=== PATIENT | male | born 1940 | race Caucasian/White ===

== ENCOUNTER 2018-07-10 08:26 | Outpatient (CLI) | payer MEDICARE, OTHER ==
--- NOTE | 2018-07-10 11:07 | MRI ---
BRAIN MRI WITH AND WITHOUT CONTRAST: Date: 07-10-18 Comparison: None. History: Bilateral sensory neural hearing loss. Technique: Multiplanar, multisequence MR imaging of the brain obtained with and without contrast usin g an internal auditory canal protocol. FINDINGS: The diffusion weighted imaging demonstrates no evidence for acute infarction. 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 There are scattered foci of increased T2 and FL AIR signal within the periventricular and deep white matter, consistent with small vessel disease. Th ere is mild mucosal thickening involving the left maxillary sinus. 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 Thin section T2 weighted imaging through the skull base demonstrates no abnormality at the level of t he cerebellar pontine angle, internal auditory canal, cochlea, vestibule, or vesicular aqua duct on e ither side. Regional bone marrow signal intensity appears grossly unremarkable. The thin section post contrast imaging demonstrates no abnormal enhancement in the region of the CP a ngle, internal auditory canal, cochlea, vestibule, or semicircular canals on either side. Post contrast imaging demonstrates no abnormal enhancement within the brain parenchyma. IMPRESSION: 1. Evidence of small vessel disease. No acute findings. POS: LETTY
== END 2018-07-10 08:27 | disposition home or self-care (01) ==
LOC: MRI 08:26
PROVIDERS: ATTEND Otolaryngology Plastic Surgery within the Head & Neck
DX: H90.5 Unspecified sensorineural hearing loss (principal); I73.9 Peripheral vascular disease, unspecified
CPT/HCPCS: 70553; 82565

== ENCOUNTER 2018-10-27 09:42 | Outpatient (CLI) | payer MEDICARE, OTHER ==
--- NOTE | 2018-10-27 10:15 | ULT ---
Abdominal aortic sonogram HISTORY: Aneurysm screening. FINDINGS: Good color and spectral Doppler flow within the abdominal aorta. Proximal abdominal aorta i s 1.8 cm AP diameter. Mid abdominal aorta 1.3 cm. Distal abdominal aorta 1.6 cm. Each common iliac artery has a normal appearance. No free fluid in the retroperitoneum. IMPRESSION: No sonographic evidence of abdominal aortic aneurysm.
== END 2018-10-27 09:43 | disposition home or self-care (01) ==
LOC: SCSULT 09:42
PROVIDERS: ATTEND Family Medicine
DX: Z13.6 Encounter for screening for cardiovascular disorders (principal)
CPT/HCPCS: 76706